=== PATIENT | male | born 1945 | race Two or more races ===

== ENCOUNTER → 2016-12-06 | Outpatient (CLI) | payer OTHER ==
[~2016-12-06] MED LIST: AMOXICILLIN500 M1 PO; ASPIRIN EC81 MG PO; CALCITRIOL0.25 MCG PO; CALCIUM CARBON500 MG PO; LEVOTHROID (S125 MCG PO; POLYSPORIN15 GM OPHTH; PRINIVIL OR ZES10 MG PO; REFRESH TEARS15 ML OPHTH; TEMAZEPAM30 MG PO; VITAMIN D-32000 UNI1 PO
== END | disposition disaster alternative care site (69) ==
LOC: GRAD 16:45
DX: C73 Malignant neoplasm of thyroid gland (principal); J18.9 Pneumonia, unspecified organism; R05 Cough; Z98.890 Other specified postprocedural states; Z18.10 Retained metal fragments, unspecified

== ENCOUNTER → 2017-01-26 | Outpatient (CLI) | payer OTHER | END | disposition disaster alternative care site (69) | LOC: GPOC 01-25 14:00 → GRAD 13:51 → GPOC 14:30 | PROC: 3E0S33Z Introduction of Anti-inflammatory into Epidural Space, Percutaneous Approach (ICD-10-PCS; principal; 2017-01-26) | PROC: 3E0S3BZ Introduction of Anesthetic Agent into Epidural Space, Percutaneous Approach (ICD-10-PCS; 2017-01-26) | DX: M54.2 Cervicalgia (principal) | CPT/HCPCS: J3301 ==